=== PATIENT | female | born 1995 | race Caucasian/White ===

== ENCOUNTER 2016-10-27 14:08 | Emergency (ER) | payer MEDICARE ==
[2016-10-27 15:30] LABS: HEMOGLOBIN 14.3 gm/dl (12.3-15.3); RED BLOOD COUNT 4.63 M/UL (4.00-5.10); WHITE BLOOD COUNT 7.3 K/UL (4.5-11.0)
[2016-10-27 15:48] LABS: BUN/CREATININE RATIO 10 (0-10)
== END 2016-10-27 18:15 | disposition home or self-care (01) ==
LOC: ER1 14:08
PROVIDERS: Physician Assistant
DX: O20.0 Threatened abortion (principal); O23.41 Unspecified infection of urinary tract in pregnancy, first trimester; O99.330 Smoking (tobacco) complicating pregnancy, unspecified trimester; Z3A.00 Weeks of gestation of pregnancy not specified
CPT/HCPCS: 36415; 76830; 80053; 81001; 84702; 85025; 86900; 86901; 87086; 96360; 99283